=== PATIENT | female | born 1995 ===

== ENCOUNTER 2016-06-07 17:20 | Emergency (ER) | payer OTHER ==
[2016-06-07 18:11] VITALS: BP 109/76
--- NOTE | 2016-06-07 19:03 | UC ---
Head Injury HPI - HPI Summary HPI Summary: SEVERAL HOURS AGO HIT TOP OF HEAD ON WASHING MACHINE, SINCE TIME OF INJURY HAS HAD BLURRED VISION IN LEFT EYE. NO HEADACHE. NO PHOTOPHOBIA. NO NECK PAIN. NO TRAUMA TO EYE. NO PAIN WITH EYE MOVEMENT. NO NAUSEA NO VOMITING - History Of Current Complaint Chief Complaint: UCHeadInjury Stated Complaint: HEAD INJURY Time Seen by Provider: 06/07/16 18:33 Hx Obtained From: Patient Hx Last Menstrual Period: 05/21/16 Onset/Duration: Sudden Onset, Lasting Hours, Still Present Severity Currently: Moderate Severity Initially: Moderate Character: Dull Associated Signs And Symptoms: Negative: LOC (Time In Secs./Mins/Hrs), LOC Duration Unknown, Confusion, Memory Loss, Seizure, Epistaxis, Dental Malocclusion, Neck Pain, Nausea, Vomiting - Risk Factors SDH Risk Factor: Negative - Allergies/Home Medications Allergies/Adverse Reactions: Allergies Allergy/AdvReac Type Severity Reaction Status Date / Time No Known Allergies Allergy Verified 06/07/16 18:11 Home Medications: Home Medications Pantoprazole TAB (NF) [Protonix TAB (NF)] 20 mg PO BID 06/07/16 [History Confirmed 06/07/16] PMH/Surg Hx/FS Hx/Imm Hx Previously Healthy: Yes Endocrine History Of: Denies: Diabetes, Thyroid Disease Cardiovascular History Of: Denies: Cardiac Disorders, Hypertension Respiratory History Of: Denies: COPD, Asthma GI/ History Of: Denies: Ulcer - Surgical History Surgical History: None - Family History Known Family History: Negative: Seizure Disorder - Social History Occupation: Student Alcohol Use: Rare Substance Use Type: None Smoking Status (MU): Never Smoked Tobacco Review of Systems Constitutional: Negative Skin: Negative Eyes: Blurred Vision - LEFT EYE ENT: Negative Respiratory: Negative Cardiovascular: Negative Gastrointestinal: Negative Genitourinary: Negative Motor: Negative Neurovascular: Negative Musculoskeletal: Negative Neurological: Negative Psychological: Negative All Other Systems Reviewed And Are Negative: Yes Physical Exam Triage Information Reviewed: Yes Appearance: Well-Appearing, No Pain Distress, Well-Nourished, Thin Vital Signs: Initial Vital Signs Temp 98.2 F 06/07/16 18:05 Pulse 74 06/07/16 18:05 Resp 18 06/07/16 18:05 BP 109/76 06/07/16 18:05 Pulse Ox 100 06/07/16 18:05 Vital Signs Reviewed: Yes Eye Exam: Normal Eyes: Positive: Conjunctiva Clear ENT Exam: Normal ENT: Positive: Normal ENT inspection, Hearing grossly normal, Pharynx normal, TMs normal Dental Exam: Normal Neck exam: Normal Neck: Positive: Supple, Nontender, No Lymphadenopathy Respiratory Exam: Normal Respiratory: Positive: Chest non-tender, Lungs clear, Normal breath sounds, No respiratory distress, No accessory muscle use Cardiovascular Exam: Normal Cardiovascular: Positive: RRR, No Murmur, Pulses Normal Abdominal Exam: Normal Musculoskeletal Exam: Normal Musculoskeletal: Positive: Strength Intact, ROM Intact Neurological Exam: Normal Psychological Exam: Normal Skin Exam: Normal Head Injury Course/Dx - Differential Dx/Diagnosis Differential Diagnosis/HQI/PQRI: Concussion Without LOC, Contusion, Intracranial Bleed, Orbital Fracture, Other - MIGRAINE Provider Diagnoses: HEAD INJURY - Physician Notification/Consults Discussed Patient Care With: DR TAVARES Time Discussed With Above Provider: 18:45 Instructed by Provider To: MD Will See In ED Discharge - Discharge Plan Condition: Stable Disposition: TRANS HIGHER LVL OF CARE FAC
== END 2016-06-07 19:00 | disposition short-term general hospital (02) ==
LOC: UCEAST 17:20
DX: S09.90XA Unspecified injury of head, initial encounter (principal); W22.09XA Striking against other stationary object, initial encounter
CPT/HCPCS: 99202; G0463

== ENCOUNTER 2016-06-07 19:19 | Emergency (ER) | payer OTHER ==
[2016-06-07 19:27] VITALS: BP 110/66
== END 2016-06-07 19:37 | disposition left against medical advice (07) ==
LOC: ED 19:19
DX: S09.90XA Unspecified injury of head, initial encounter (principal); X58.XXXA Exposure to other specified factors, initial encounter; Y93.9 Activity, unspecified; Y92.9 Unspecified place or not applicable; Z53.21 Procedure and treatment not carried out due to patient leaving prior to being seen by health care provider